=== PATIENT | female | born 1950 | race Caucasian/White ===

== ENCOUNTER 2018-12-08 17:12 | Emergency (ER) | payer MEDICARE, BC ==
[2018-12-08 17:20] VITALS: BP 141/71
--- NOTE | 2018-12-08 17:28 | UC ---
Skin Complaint HPI - HPI Summary HPI Summary: 68-year-old female who had some abdominal issues early in the week. She saw her primary care provider who put her on amoxicillin for that. The patient had a known history of allergies to penicillins however has taken the amoxicillin. She has broken out in a generalized itchy rash. She denies any difficulty breathing and no wheezing or facial swelling or throat closing. She has been taking Benadryl at home with mild relief. - History of Current Complaint Chief Complaint: UCAllergicReaction Time Seen by Provider: 12/08/18 17:20 Stated Complaint: POSS ALLERGIC REACTION, RASH Hx Obtained From: Patient ?: No Onset/Duration: Gradual Onset Skin Exposure Onset/Duration: Hours Ago Timing: Constant Onset Severity: Moderate Current Severity: Moderate Pain Intensity: 0 Location: Generalized - Generalized itchy rash. Character: Pruritus, Redness Aggravating Factor(s): Nothing Alleviating Factor(s): Nothing Associated Signs & Symptoms: Positive: Negative - Allergy/Home Medications Allergies/Adverse Reactions: Allergies Allergy/AdvReac Type Severity Reaction Status Date / Time amoxicillin Allergy Rash Verified 12/08/18 17:21 ciprofloxacin [From Cipro] Allergy Unknown Verified 12/08/18 17:21 Reaction Details iodine Allergy Pain Verified 12/08/18 17:21 Penicillins Allergy Rash Verified 12/08/18 17:21 Home Medications: Home Medications diphenhydrAMINE HCl [Benadryl] 25 mg PO DAILY 12/08/18 [History Confirmed ] PMH/Surg Hx/FS Hx/Imm Hx Previously Healthy: Yes GI/ History: Diverticulitis - Surgical History Surgical History: Yes Surgery Procedure, Year, and Place: HYSTERECTOMY-SEVERAL OTHER FEMALE SURGERIES THAT LEAD TO A TOTAL HYSTERECTOMY - Family History Known Family History: Positive: Non-Contributory - Social History Alcohol Use: Rare Substance Use Type: None Smoking Status (MU): Never Smoked Tobacco Review of Systems All Other Systems Reviewed And Are Negative: Yes Skin: Positive: Rash Is Patient Immunocompromised?: No Physical Exam Triage Information Reviewed: Yes Appearance: Well-Appearing, No Pain Distress, Well-Nourished Vital Signs: Initial Vital Signs Temp 97.3 F 12/08/18 17:17 Pulse 69 12/08/18 17:17 Resp 16 12/08/18 17:17 BP 141/71 07/27/19 17:17 Pulse Ox 98 12/08/18 17:17 Vital Signs Reviewed: Yes Eyes: Positive: Conjunctiva Clear ENT: Positive: Pharynx normal, TMs normal, Uvula midline Neck: Positive: Supple, Nontender, No Lymphadenopathy Respiratory: Positive: Lungs clear, Normal breath sounds, No respiratory distress, No accessory muscle use Cardiovascular: Positive: RRR, No Murmur, Pulses Normal, Brisk Capillary Refill Musculoskeletal Exam: Normal Neurological Exam: Normal Psychological Exam: Normal Skin: Positive: Rashes - Generalized itchy rash. Course/Dx - Course Course Of Treatment: I'm going to put the patient on a tapering dose of prednisone and follow-up with the emergency room if she has any difficulty breathing, wheezing facial swelling or throat closing. She's follow-up with her primary care provider if no improvement in 3 or 4 days. - Diagnoses Provider Diagnosis: Allergic reaction caused by a drug Discharge - Sign-Out/Discharge Documenting (check all that apply): Patient Departure All imaging exams completed and their final reports reviewed: No Studies - Discharge Plan Condition: Fair Disposition: HOME Prescriptions: predniSONE TAB* [Deltasone 10 MG TAB*] 10 mg PO DAILY 12 Days #30 tab Patient Education Materials: Urticaria (ED) Referrals: Katie Reese MD [Primary Care Provider] - Additional Instructions: You may continue to take Benadryl 25-50 mg every 6 hours over the next day or 2. The prednisone with food. Go to the emergency room if you develop any difficulty breathing, wheezing, facial swelling or difficulty swallowing. Follow-up with your primary care provider in 3-4 days if no improvement. - Billing Disposition and Condition Condition: FAIR Disposition: Home - Attestation Statements Provider Attestation: This patient was not seen by me. I was available for consult. SILVANO
[2018-12-08] MEDS ORDERED: predniSONE TAB* 20 MG PO ONE (17:33)
== END 2018-12-08 17:41 | disposition home or self-care (01) ==
LOC: UCCORT 17:12
DX: L27.0 Generalized skin eruption due to drugs and medicaments taken internally (principal); T36.0X5A Adverse effect of penicillins, initial encounter; Y92.9 Unspecified place or not applicable
CPT/HCPCS: 99212; G0463; J7512